=== PATIENT | male | born 1990 | race Two or more races ===

== ENCOUNTER 2023-11-18 16:30 | Emergency (ER) | payer BC, OTHER ==
[~2023-11-18] VITALS: Ht 182.9 cm; Wt 78.9 kg
[2023-11-18] MEDS ORDERED: IBUPROFEN 600 MG TABLET PO ONE (17:00)
[2023-11-18] MEDS ORDERED: TDAP [DIPH/PERTUSSIS/TET] 0.5 ML VIAL IM ONE ×2 (17:00→17:50)
[2023-11-18] MEDS ORDERED: AMOX-430 PO (17:43)
[2023-11-18] MEDS ORDERED: IBUP-1955 PO (17:44)
[2023-11-18] MEDS ORDERED: IBUPROFEN 600 MG TABLET ONE (17:50)
[2023-11-18 18:12] VITALS: BP 151/102; TEMP 98.3; O2SAT 99
== END 2023-11-18 18:12 | disposition home or self-care (01) ==
LOC: ER 16:53
DX: S61.551A Open bite of right wrist, initial encounter (principal); Z60.2 Problems related to living alone; W54.0XXA Bitten by dog, initial encounter; Y93.89 Activity, other specified; Y92.89 Other specified places as the place of occurrence of the external cause; Y99.8 Other external cause status
CPT/HCPCS: 99283; 90471; 90715; 73110; A6403